=== PATIENT | male | born 1985 | race Caucasian/White ===

== ENCOUNTER 2020-05-07 02:09 | Emergency (ER) | payer MEDICAID, SELFPAY ==
[~2020-05-07] VITALS: Ht 177.8 cm; Wt 83.9 kg
[2020-05-07 02:35] VITALS: BP_SYST 163
[2020-05-07] MEDS ORDERED: IBUPROFEN 800 MG TABLET PO ONE (04:15)
[2020-05-07 05:01] VITALS: BP_SYST 163
== END 2020-05-07 05:01 | disposition home or self-care (01) ==
LOC: SED 02:09
DX: S39.012A Strain of muscle, fascia and tendon of lower back, initial encounter (principal); F17.200 Nicotine dependence, unspecified, uncomplicated; X50.9XXA Other and unspecified overexertion or strenuous movements or postures, initial encounter; Y93.89 Activity, other specified; Y92.89 Other specified places as the place of occurrence of the external cause; Y99.8 Other external cause status
CPT/HCPCS: 99281